=== PATIENT | male | born 1945 | race Native Hawaiian/Other Pacific Islander ===

== ENCOUNTER 2016-12-25 11:36 | Inpatient (IN) | payer MEDICARE, OTHER ==
[~2016-12-25] VITALS: Ht 162.6 cm; Wt 70.8 kg
[~2016-12-25 11:36] MED LIST: ASPI81CH43; FEBU40TA; INDO50SU; NIAC500T58; TEMA7.5C
[2016-12-25] MEDS ORDERED: SODIUM CHLORIDE 0.9% 1,000 ML IV ONE ×3 (12:23→13:19)
[2016-12-25 12:28] LABS: Urine Bilirubin Negative (Negative); Urine Blood 1+ /uL (Negative); Urine Color Yellow (Yellow); Urine Glucose Normal (Normal); Urine Ketone Negative (Negative); Urine Mucus FEW (None Seen); Urine Nitrite Negative (Negative); Urine RBC 8 /hpf (0 - 3); Urine Squamous Epithelial Cell FEW /hpf (<5); Urine Urobilinogen Normal (Negative)
[2016-12-25] MEDS ORDERED: KETOROLAC TROMETH 30 MG/ML 1ML VIAL IV ONE (12:30)
[2016-12-25 13:00] LABS: Albumin 3.7 g/dL (3.4-5.0); BUN/Creatinine Ratio 10.8; Basophils # (auto) 0 uL; Basophils % (auto) 0.2 % (0.0-2.0); Bilirubin, Total 0.5 mg/dL (0.2-1.0); CONDITION Y; Calcium 8.5 mg/dL (8.5-10.1); DEFINITIVE SEE PRINTOUT; Eosinophils # (auto) 0 uL; Eosinophils % (auto) 0.4 % (0.0-7.0); Hematocrit 34.4 % (41.0-53.0); Hemoglobin 11.1 g/dL (13.5-17.5); Lymphocytes # (auto) 1.6 uL; Lymphocytes % (auto) 15.2 % (10.0-50.0); Mean Corpuscular Hemoglobin 24.2 pg (28.0-32.0); Mean Corpuscular Hgb Conc. 32.2 g/dL (32.0-36.0); Mean Corpuscular Volume 75.3 fL (80.0-100.0); Mean Platelet Volume 6.9 fL (7.4-10.4); Monocytes # (auto) 0.5 uL; Monocytes % (auto) 4.9 % (0.0-12.0); Neutrophils # (auto) 8.2 uL; Neutrophils % (auto) 79.3 % (37.0-80.0); Platelet Count (auto) 384 10^3/uL (140-450); Potassium 3.9 mmol/L (3.5-5.1); Red Cell Distribution Width 15.6 % (11.6-16.0); Total Protein 7.6 g/dL (6.4-8.2); White Blood Cell 10.3 10^3/uL (4.4-10.8)
[2016-12-25] MEDS ORDERED: ACETAMINOPHEN 325 MG TAB PO PRN (13:45)
[2016-12-25] MEDS ORDERED: cefTRIAXone 1GM/50ML D5W 50 ML IV ONE (13:45)
[2016-12-25] MEDS ORDERED: MORPHINE SULF INJ 2 MG/ML SYRINGE 1ML IV PRN ×2 (13:45)
[2016-12-25] MEDS ORDERED: TEMAZEPAM 15 MG CAP PO PRN (13:45)
[2016-12-25] MEDS ORDERED: ONDANSETRON HCL 4 MG/2 ML VIAL IV PRN (13:45)
[2016-12-25] MEDS ORDERED: DOCUSATE SOD 100 MG CAP PO PRN (13:45)
[2016-12-25] MEDS ORDERED: NITROGLYCERIN 0.4 MG SL TAB SL PRN (13:45)
[2016-12-25] MEDS ORDERED: cloNIDine HCL 0.1 MG TAB PO PRN (14:00)
[2016-12-25] MEDS: SODIUM CHLORIDE 0.9% 1,000 ML IV SCH ×2 (14:19→21:59)
[2016-12-25 14:24] LABS: INR 0.95 (0.9-1.15); Prothrombin Time 10.4 sec (9.37-12.3)
[2016-12-25] MEDS: MULTIPLE VITAMIN TAB PO SCH (14:29)
[2016-12-25] MEDS ORDERED: ALLOPURINOL 300 MG TAB PO ONE (14:30)
[2016-12-25] MEDS ORDERED: ASPirin-EC 81 mg tab PO ONE (14:30)
[2016-12-25] MEDS: HYDROcodone-ACET 5/325MG TAB PO PRN (20:20)
[2016-12-25] MEDS: FAMOTIDINE 20 MG TAB PO SCH (21:21)
[2016-12-25] MEDS: Niacin SR 500mg TAB PO SCH (21:22)
[2016-12-25] MEDS ORDERED: ALL300T PO (22:14)
[2016-12-25 23:28] VITALS: BP 131/75
[2016-12-26] MEDS: HYDROcodone-ACET 5/325MG TAB PO PRN ×2 (04:45→11:06)
[2016-12-26 05:00] VITALS: BP 161/81
[2016-12-26] MEDS: SODIUM CHLORIDE 0.9% 1,000 ML IV SCH ×2 (05:35→13:45)
[2016-12-26 05:36] LABS: Basophils # (auto) 0 uL; Basophils % (auto) 0.3 % (0.0-2.0); CONDITION Y; DEFINITIVE SEE PRINTOUT; Eosinophils # (auto) 0.1 uL; Eosinophils % (auto) 0.9 % (0.0-7.0); Hemoglobin 9.6 g/dL (13.5-17.5); Lymphocytes # (auto) 1.7 uL; Lymphocytes % (auto) 18.1 % (10.0-50.0); Mean Corpuscular Hemoglobin 24.2 pg (28.0-32.0); Mean Corpuscular Volume 75.6 fL (80.0-100.0); Mean Platelet Volume 6.4 fL (7.4-10.4); Monocytes # (auto) 0.7 uL; Monocytes % (auto) 7.3 % (0.0-12.0); Neutrophils # (auto) 6.7 uL; Neutrophils % (auto) 73.4 % (37.0-80.0); Platelet Count (auto) 323 10^3/uL (140-450); Red Cell Distribution Width 15.2 % (11.6-16.0); White Blood Cell 9.1 10^3/uL (4.4-10.8)
[2016-12-26 06:01] LABS: Potassium 4.2 mmol/L (3.5-5.1)
[2016-12-26 06:12] LABS: BUN/Creatinine Ratio 8.9; Bilirubin, Total 0.8 mg/dL (0.2-1.0); Calcium 7.7 mg/dL (8.5-10.1); Total Protein 6.4 g/dL (6.4-8.2)
[2016-12-26 09:00] VITALS: BP 125/80
[2016-12-26] MEDS ORDERED: cefTRIAXone 1GM/50ML D5W 50 ML IV SCH (09:00)
[2016-12-26] MEDS ORDERED: MANNITOL FTV 25% 12.5 GM/50 ML 50 ML IV ONE (09:15)
[2016-12-26] MEDS: MULTIPLE VITAMIN TAB PO SCH (09:36)
[2016-12-26] MEDS: ALLOPURINOL 300 MG TAB PO SCH (09:36)
[2016-12-26] MEDS: FAMOTIDINE 20 MG TAB PO SCH ×2 (09:36→21:38)
[2016-12-26] MEDS: ASPirin-EC 81 mg tab PO SCH (09:37)
[2016-12-26 13:00] VITALS: BP 122/70
[2016-12-26] MEDS ORDERED: KETOROLAC TROMETH 30 MG/ML 1ML VIAL IV PRN (13:30)
[2016-12-26 17:00] VITALS: BP 111/52
[2016-12-26] MEDS ORDERED: TAMSULOSIN HYDROCHLORIDE 0.4 MG CAP PO SCH (18:00)
[2016-12-26 20:00] VITALS: BP 161/87
[2016-12-26] MEDS: Niacin SR 500mg TAB PO SCH (20:45)
[2016-12-26 22:00] VITALS: BP 132/70
[2016-12-27] MEDS: SODIUM CHLORIDE 0.9% 1,000 ML IV SCH ×2 (00:56→09:32)
[2016-12-27 05:00] VITALS: BP 139/74
[2016-12-27 06:22] LABS: Basophils # (auto) 0 uL; Basophils % (auto) 0.2 % (0.0-2.0); CONDITION Y; DEFINITIVE SEE PRINTOUT; Eosinophils # (auto) 0.1 uL; Eosinophils % (auto) 0.7 % (0.0-7.0); Hematocrit 28.6 % (41.0-53.0); Hemoglobin 9.4 g/dL (13.5-17.5); Lymphocytes # (auto) 1.8 uL; Mean Corpuscular Hemoglobin 24.7 pg (28.0-32.0); Mean Corpuscular Hgb Conc. 32.9 g/dL (32.0-36.0); Mean Corpuscular Volume 75.1 fL (80.0-100.0); Mean Platelet Volume 7.2 fL (7.4-10.4); Monocytes # (auto) 0.6 uL; Monocytes % (auto) 6.9 % (0.0-12.0); Neutrophils # (auto) 6.4 uL; Neutrophils % (auto) 72.2 % (37.0-80.0); Platelet Count (auto) 294 10^3/uL (140-450); Red Cell Distribution Width 15.4 % (11.6-16.0); White Blood Cell 8.8 10^3/uL (4.4-10.8)
[2016-12-27 08:00] VITALS: BP 161/87
[2016-12-27 08:43] VITALS: BP 144/75
[2016-12-27 08:43] LABS: BUN/Creatinine Ratio 10.3; Calcium 8.1 mg/dL (8.5-10.1); Potassium 4.1 mmol/L (3.5-5.1)
[2016-12-27 08:44] LABS: Magnesium 2.2 mg/dL (1.6-2.6)
[2016-12-27] MEDS: MULTIPLE VITAMIN TAB PO SCH (09:31)
[2016-12-27] MEDS: ALLOPURINOL 300 MG TAB PO SCH (09:32)
[2016-12-27] MEDS: FAMOTIDINE 20 MG TAB PO SCH (09:32)
[2016-12-27] MEDS: ASPirin-EC 81 mg tab PO SCH (09:32)
[2016-12-27 12:02] LABS: Vitamin B12 582 pg/mL (211-911)
[2016-12-27 12:03] LABS: Temperature: 23.5 C (20.0-25.0)
[2016-12-27 12:59] VITALS: BP 142/75
[2016-12-27 16:05] LABS: BUN/Creatinine Ratio 11.3; Calcium 8.1 mg/dL (8.5-10.1); Potassium 3.9 mmol/L (3.5-5.1)
[2016-12-27 16:27] VITALS: BP 142/75
[2016-12-27 16:57] VITALS: BP 148/82
[2016-12-28] MEDS ORDERED: SODIUM CHLORIDE 0.9% 1,000 ML IV SCH (13:45)
== END 2016-12-27 17:10 | disposition home or self-care (01) | DRG 694 ==
LOC: ER 11:36 → OVERFLOW 11:37 → WEST WING 15:36 → EAST 15:46 → WEST WING 18:44
PROVIDERS: ADMIT Internal Medicine; ATTEND Internal Medicine
DX: N13.2 Hydronephrosis with renal and ureteral calculous obstruction (principal); N17.0 Acute kidney failure with tubular necrosis; M10.9 Gout, unspecified; N18.3 Chronic kidney disease, stage 3 (moderate); D63.8 Anemia in other chronic diseases classified elsewhere; E78.5 Hyperlipidemia, unspecified; I12.9 Hypertensive chronic kidney disease with stage 1 through stage 4 chronic kidney disease, or unspecified chronic kidney disease; I70.8 Atherosclerosis of other arteries; Z80.7 Family history of other malignant neoplasms of lymphoid, hematopoietic and related tissues; Z83.3 Family history of diabetes mellitus; Z87.442 Personal history of urinary calculi; Z84.1 Family history of disorders of kidney and ureter; Z79.82 Long term (current) use of aspirin
CPT/HCPCS: 36415; 71010; 74176; 80048; 80053; 80061; 81001; 82270; 82607; 82746; 83540; 83550; 83735; 85025; 85610; 87045; 87086; 87493; 87899; 93005; 96361; 96365; 96375; J0696; J1885

== ENCOUNTER → 2023-01-04 | Outpatient (CLI) | payer MEDICARE, OTHER ==
[~2023-01-04] MED LIST changes: +ALL300T PO; -FEBU40TA; -INDO50SU; +NIAC-10; -NIAC500T58
[2023-01-04 16:31] LABS: Basophils # (auto) 0 10 ^3/uL (0-0.2); Basophils % (auto) 0.4 % (0.0-2.0); Eosinophils # (auto) 0.1 10 ^3/uL (0-0.8); Eosinophils % (auto) 2.4 % (0.0-7.0); Hematocrit 41.6 % (41.0-53.0); Hemoglobin 14.5 g/dL (13.5-17.5); Lymphocytes # (auto) 2.5 10 ^3/uL (0.4-5.4); Lymphocytes % (auto) 44.9 % (10.0-50.0); Mean Corpuscular Hemoglobin 32.6 pg (28.0-32.0); Mean Corpuscular Hgb Conc. 34.9 g/dL (32.0-36.0); Mean Corpuscular Volume 93.3 fL (80.0-100.0); Monocytes # (auto) 0.3 10 ^3/uL (0-1.3); Monocytes % (auto) 5.7 % (0.0-12.0); Neutrophils # (auto) 2.6 10 ^3/uL (1.6-8.6); Neutrophils % (auto) 46.6 % (37.0-80.0); Nucleated Red Blood Cells % 0.2 %; Red Blood Cells 4.46 10^6/uL (4.5-5.90); Red Cell Distribution Width 12.7 % (11.8-14.3); White Blood Cell 5.6 10^3/uL (4.4-10.8)
[2023-01-04 16:37] LABS: Urine Bacteria NONE SEEN /hpf (None Seen); Urine Blood Negative /uL (Negative); Urine Clarity Clear (Clear); Urine Color Yellow (Yellow); Urine Mucus FEW (None Seen); Urine Protein, UAD Negative (Negative); Urine Urobilinogen Normal (Negative); Urine WBC <1 /hpf (0 - 3); Urine pH 5.5 (5.0-8.0)
[2023-01-04 16:49] LABS: Albumin 3.6 g/dL (3.4-5.0); Calcium 8.2 mg/dL (8.5-10.1)
[2023-01-04 16:54] LABS: Bilirubin, Total 0.6 mg/dL (0.2-1.0); Total Protein 6.9 g/dL (6.4-8.2); Uric Acid 6.5 mg/dL (3.5-7.2)
[2023-01-04 16:58] LABS: Folate (Folic Acid) > 24.00 ng/mL (5.38-24); Prostate Specific Antigen 10.89 ng/mL (0.0-4.0)
== END | disposition home or self-care (01) ==
LOC: LAB 16:10
PROVIDERS: ATTEND Specialist
DX: E78.5 Hyperlipidemia, unspecified (principal); M10.9 Gout, unspecified; G47.00 Insomnia, unspecified; E55.9 Vitamin D deficiency, unspecified; E53.8 Deficiency of other specified B group vitamins; I95.9 Hypotension, unspecified; C61 Malignant neoplasm of prostate; M54.50 Low back pain, unspecified; M25.519 Pain in unspecified shoulder; Z79.82 Long term (current) use of aspirin; Z79.899 Other long term (current) drug therapy
CPT/HCPCS: 36415; 80053; 80061; 81001; 82043; 82306; 82607; 82746; 83036; 84153; 84443; 84550; 85025; 87086